=== PATIENT | male | born 1955 | race Caucasian/White ===

== ENCOUNTER 2019-08-28 11:57 | Emergency (ER) | payer MEDICARE ==
[2019-08-28] MEDS ORDERED: Ibuprofen 200 MG TAB ONE (12:12)
--- NOTE | 2019-08-28 18:42 | CT ---
CT OF THE LEFT FOOT: 08/28/[address] of the lower leg through the foot was performed after the patient fell off a ladder. The exam shows a comminuted fracture of the calcaneus with numerous fracture lines running in various different orientations. Fractures run both vertically and horizontally and go completely through the body of the calcaneus. Displacement of fractures is only slight, however. A small stephen of bone or c alcific density just lateral to the cuboid may be either an accessory ossicle or tiny fragments from the calcaneal fractures. I do not see fractures of other tarsal bones or metatarsals. IMPRESSION: Comminuted calcaneal fracture with only slight displacement of fragments. Preliminary report called to Dr. Beltran at 12:38 on 08/28/19. POS: HOME
== END 2019-08-28 14:09 | disposition home or self-care (01) ==
LOC: BURERS 11:57
DX: S92.001A Unspecified fracture of right calcaneus, initial encounter for closed fracture (principal); I48.91 Unspecified atrial fibrillation; I10 Essential (primary) hypertension; Z79.01 Long term (current) use of anticoagulants; Z79.899 Other long term (current) drug therapy; W11.XXXA Fall on and from ladder, initial encounter
CPT/HCPCS: 29515